=== PATIENT | female | born 1995 | race Caucasian/White ===

== ENCOUNTER 2016-12-11 19:28 | Emergency (ER) | payer OTHER ==
[~2016-12-11] VITALS: Ht 160 cm; Wt 55.5 kg
[~2016-12-11 19:28] MED LIST: BCPILLS PO; CETI10TA84 PO; MISCCAP80 PO; NAPR1TAB9 PO; XPNIN INH
[2016-12-11 19:54] VITALS: Ht 160 cm; Wt 55.5 kg
[2016-12-11] MEDS ORDERED: SODIUM CHLORIDE 0.9% 1000ML 1,000 ML IV STA (20:19)
[2016-12-11] MEDS ORDERED: ONDANSETRON INJ 2 MG/ML 2 ML VIAL IV STA (20:19)
[2016-12-11] MEDS ORDERED: KETOROLAC TROMETHAMINE 30 MG/ML VIAL IV STA (20:19)
[2016-12-11] MEDS ORDERED: ACETAMINOPHEN 500 MG TAB PO STA (20:19)
[2016-12-11] MEDS ORDERED: EPP3/2 IM (20:23)
[2016-12-11] MEDS ORDERED: AZTREONAM IV 1,000 MG in DEXTROSE 5% 100ML 100 ML IV SCH (20:30)
--- NOTE | 2016-12-11 20:33 | EMERGENCY ROOM VISIT NOTE ---
History Report prepared by Deb: Genaro Antonio Under the Supervision of: Dr. Hebert Todd M.D. First contact with patient: 20:16 Chief Complaint: URINARY SYMPTOMS Stated Complaint: BACK PAIN,URINARY INFECTION Nursing Triage Summary: Blood in urine at [id number]. fever, chills. History of Present Illness The patient is a 21 year old female who presents to the Emergency Room with complaints of persistent urinary symptoms beginning yesterday. She notes she often gets ovarian cysts and thought she was getting one the other day. She had body aches yesterday after getting up from the couch, and has bilateral back pain, nausea, and chills. She adds she developed a fever this morning. The patient was seen at [facility] today and was told to follow up at the ER to check for a urinary infection. She notes she has a family history of kidney stones. Source of History: patient Onset: yesterday Position: pelvis Quality: other (urinary symptoms) Timing: other (persistent) Associated Symptoms: + back pain, + chills, + nausea Note: The patient notes having body aches. Review of Systems See HPI for pertinent positives & negatives. A total of 10 systems reviewed and were otherwise negative. Past Medical & Surgical Medical Problems: (1) Allergic reaction (2) Allergic reaction (3) Hypoglycemia in (4) Right lower quadrant abdominal pain (5) Scoliosis (6) Sore throat (7) Sore throat (8) Vasovagal syncope Family History Cancer Diabetes mellitus FH: heart disease Hypertension Kidney disease Kidney stones Social History Smoking Status: Never Smoker Alcohol Use: none Drug Use: none Marital Status: single Housing Status: lives with roommate Occupation Status: [employer] student Current/Historical Medications Scheduled Control Pills ( Control Pills), 1 TAB PO DAILY Scheduled PRN Cetirizine Hcl (Zyrtec), 5 MG PO BID PRN for Allegy Symptoms Epinephrine (Epipen 2-Hcristopher), 0.3 MG IM UD PRN for ALLERGIC REACTION Levalbuterol Tartrate (Levalbuterol Tartrate Hfa), 2 PUFFS INH Q4H PRN for ALLERGIC REACTION Naproxen (Aleve), 220 MG PO Q8 PRN for Pain or Fever Allergies Coded Allergies: Acetaminophen (Unverified Allergy, Severe, FACE AND THROAT NUMB, 02/27/16) Ibuprofen (Unverified Allergy, Severe, FACE AND THROAT NUMB, 02/27/16) Cephalexin (Unverified Allergy, Mild, LIPS & TONGUE TINGLING, THROAT IRRITATED, 02/27/16) Albuterol (Verified Allergy, Unknown, Trouble breathing., 02/27/16) Reported by PT Amoxicillin (Verified Allergy, Unknown, Hives, 02/27/16) Reported by PT. Ciprofloxacin (Verified Allergy, Unknown, Face numbness., 02/27/16) Reported by PT. Levofloxacin (Verified Allergy, Unknown, Face numbness., 02/27/16) Reported by PT NUTS (Verified Allergy, Unknown, ., 02/27/16) Reported by PT, allergy is to Selena Nuts and Almonds. Penicillins (Verified Allergy, Unknown, Hives, 02/27/16) Reported by PT. Sesame Seed (Verified Allergy, Unknown, ., 02/27/16) Sulfa Antibiotics (Verified Allergy, Unknown, Unknown, 02/27/16) PT reports, mother is allergic so she sulfa medications. Uncoded Allergies: FRUIT (Allergy, Unknown, ., 07/26/14) Physical Exam Vital Signs Date Time Temp Pulse Resp B/P Pulse Ox O2 Delivery O2 Flow Rate FiO2 12/11/16 23:00 36.9 98 16 111/78 97 Room Air 12/11/16 21:19 38.4 103 16 107/74 100 Room Air 12/11/16 19:54 38.8 145 16 121/70 97 Room Air Physical Exam CONSTITUTIONAL: Patient is moderately uncomfortable. HEENT: No icterus, moist mucous membranes NECK: No meningismus, trachea is midline. CARDIOVASCULAR: Regular rate, normal perfusion RESPIRATORY: Unlabored breathing. Clear to auscultation. GASTROINTESTINAL: Non-tender GENITOURINARY: No flank tenderness MUSCULOSKELETAL: Full range of motion. Diffuse back pain. NEUROLOGIC: No acute gross focal deficits. PSYCHIATRIC: Normal affect SKIN: Normal for ethnicity. Medical Decision & Procedures ER Provider Diagnostic Interpretation: US results as stated below per my review and radiologist interpretation. RENAL ULTRASOUND FINDINGS: The right kidney measures 11.1 cm in maximal dimension and the left measures 10.8 cm. There is no hydronephrosis. No calculi or masses are identified. There is no fluid collection to suggest a renal abscess. Both ureteral jets were identified. IMPRESSION: Unremarkable renal ultrasound. No hydronephrosis. Electronically signed by: Manny Ennis M.D. 12/11/2016 9:06 PM Dictated Date/Time: 12/11/2016 9:05 PM A[address]OMEN AND PELVIS CT WITHOUT CONTRAST FINDINGS: The lung bases are clear. The unenhanced liver, gallbladder, spleen, pancreas, and adrenal glands are unremarkable. No renal stones or hydronephrosis. No bowel wall thickening or obstruction. The pelvic organs are unremarkable. No suspicious lytic or blastic osseous lesions. There is no perinephric fat stranding. Normal appendix. The bladder is unremarkable. Suboptimal evaluation for bowel pathology due to the lack of intravenous and oral contrast. IMPRESSION: No renal stones or hydronephrosis. No bowel wall thickening or obstruction. Normal appendix. Electronically signed by: Wilman Ornelas M.D. 12/11/2016 10:29 PM Dictated Date/Time: 12/11/2016 10:24 PM Laboratory Results 12/11/16 20:25 Red Blood Count 5.36, Mean Corpuscular Volume 74.1, Mean Corpuscular Hemoglobin 25.2, Mean Corpuscular Hemoglobin Concent 34.0, Mean Platelet Volume 9.8, Neutrophils (%) (Auto) 79.2, Lymphocytes (%) (Auto) 13.2, Monocytes (%) (Auto) 6.8, Eosinophils (%) (Auto) 0.0, Basophils (%) (Auto) 0.6, Neutrophils # (Auto) 4.21, Lymphocytes # (Auto) 0.70, Monocytes # (Auto) 0.36, Eosinophils # (Auto) 0.00, Basophils # (Auto) 0.03 12/11/16 20:25 Test 12/11/16 20:25 White Blood Count 5.31 K/uL (4.8-10.8) Red Blood Count 5.36 M/uL (4.2-5.4) Hemoglobin 13.5 g/dL (12.0-16.0) Hematocrit 39.7 % (37-47) Mean Corpuscular Volume 74.1 fL (80-100) Mean Corpuscular Hemoglobin 25.2 pg (25-34) Mean Corpuscular Hemoglobin Concent 34.0 g/dl (32-36) Platelet Count 256 K/uL (130-400) Mean Platelet Volume 9.8 fL (7.4-10.4) Neutrophils (%) (Auto) 79.2 % Lymphocytes (%) (Auto) 13.2 % Monocytes (%) (Auto) 6.8 % Eosinophils (%) (Auto) 0.0 % Basophils (%) (Auto) 0.6 % Neutrophils # (Auto) 4.21 K/uL (1.4-6.5) Lymphocytes # (Auto) 0.70 K/uL (1.2-3.4) Monocytes # (Auto) 0.36 K/uL (0.11-0.59) Eosinophils # (Auto) 0.00 K/uL (0-0.5) Basophils # (Auto) 0.03 K/uL (0-0.2) RDW Standard Deviation 34.1 fL (36.4-46.3) RDW Coefficient of Variation 12.7 % (11.5-14.5) Immature Granulocyte % (Auto) 0.2 % Immature Granulocyte # (Auto) 0.01 K/uL (0.00-0.02) Microcytosis PRESENT Urine Color YELLOW Urine Appearance CLEAR (CLEAR) Urine pH 7.0 (4.5-7.5) Urine Specific [place] 1.002 (1.000-1.030) Urine Protein NEG (NEG) Urine Glucose (UA) NEG (NEG) Urine Ketones NEG (NEG) Urine Occult Blood 1+ (NEG) Urine Nitrite NEG (NEG) Urine Bilirubin NEG (NEG) Urine Urobilinogen NEG (NEG) Urine Leukocyte Esterase TRACE (NEG) Urine WBC (Auto) /hpf (0-5) Urine RBC (Auto) /hpf (0-4) Urine Hyaline Casts (Auto) /lpf (0-5) Urine Epithelial Cells (Auto) /lpf (0-5) Urine Bacteria (Auto) (NEG) Urine RBC 5-10 /hpf (0-4) Urine WBC 5-10 /hpf (0-5) Urine Epithelial Cells 10-20 /lpf (0-5) Urine Bacteria 2+ (NEG) Anion Gap 11.0 mmol/L (3-11) Est Creatinine Clear Calc Drug Dose 85.6 ml/min Estimated GFR () 111.9 Estimated GFR (Non- 96.6 BUN/Creatinine Ratio 11.0 (10-20) Calcium Level 9.3 mg/dl (8.5-10.1) Human Chorionic Gonadotropin, Qual NEG (NEG) Labs reviewed by ED physician. Medications Administered Medications (Trade) Dose Ordered Sig/Tyrone Route Start Time Stop Time Status Last Admin Dose Admin Sodium Chloride (Nss 1000ml) 1,000 ml @ 0 mls/hr Q0M STAT IV 12/11/16 20:19 12/11/16 20:21 DC 12/11/16 20:19 0 MLS/HR ED Course 2021: Past medical records reviewed. The patient was evaluated in room C8. A complete history and physical examination was performed. 2019: Ordered Toradol Inj 30 mg IV, Zofran Inj 4 mg IV, NSS 1,000 ml @ 0 mls/hr Wide Open IV, and Tylenol Tab 1,000 mg PO. 2029: Ordered Aztreonam 1,000 mg/Dextrose 110 ml @ 100 mls/hr IV. 2244: Upon reexamination the patient is hemodynamically stable. I discussed results and treatment plan with the patient. She verbalizes agreement and understanding. The patient is ready for discharge. Medical Decision Differentials include pyelonephritis, and ovarian cysts. 21-year-old presented from the [facility] for evaluation of possible pyelonephritis. She notes fever earlier today, nausea and generalized unwellness with history of urinary tract infection of the past. Her urine was reportedly dirty at the urgent care. She notes a complex past medical history for multiple food and drug allergies and is reluctant to take any medications here in the emergency room. She took one Aleve more than 8 hours prior to ED arrival. Therefore, it does not appear as if she has any antipyretic effects on board. A comprehensive ED assessment was performed including an ultrasound followed by a CT to ensure her flank pain was not caused by any type of infectious or serious process. Labs were essentially normal with the urine sample showing some epithelial cells. Patient very reluctant to take antibiotics in the context of her allergies and therefore a second urine sample was sent with culture pending. She was advised to continue to take Aleve every 8 hours as needed for any fevers and understands a few minutes up to 5 days. She understands to return for any worsening or worrisome symptoms. She was advised that should the urine culture be positive we will call her discussed the use of antibiotics. She notes a history of pruritus and shortness of breath to antibiotic in the past although she is not clear which one. Many of her allergies are based on allergy testing per a local lead embedded software engineer as well as a specialist she is seen in [facility]. Impression Primary Impression: Fever Additional Impression: Myalgia Scribe Attestation The scribe's documentation has been prepared under my direction and personally reviewed by me in its entirety. I confirm that the note above accurately reflects all work, treatment, procedures, and medical decision making performed by me. Departure Information Dispostion Home / Self-Care Referrals No Doctor, Assigned (PCP) Patient Instructions Fever - [facility], [facility] Problem Qualifiers
[2016-12-11] MEDS ORDERED: LEVA45AE INH (20:36)
[2016-12-11] MEDS ORDERED: ZYR/5 PO (20:36)
[2016-12-11 20:37] LABS: BASO % 0.6 %; BASO ABS # 0.03 K/uL (0-0.2); HEMATOCRIT 39.7 % (37-47); IG% 0.2 %; LYMPH % 13.2 %; MEAN CELL VOLUME 74.1 fL (80-100); MEAN CORPUSCULAR HEMOGLOBIN 25.2 pg (25-34); MEAN PLATELET VOLUME 9.8 fL (7.4-10.4); MONO % 6.8 %; NEUT % 79.2 %; PLATELET COUNT 256 K/uL (130-400); RED BLOOD COUNT 5.36 M/uL (4.2-5.4); WHITE BLOOD COUNT 5.31 K/uL (4.8-10.8)
[2016-12-11 20:48] LABS: URINE APPEARANCE CLEAR (CLEAR); URINE BILIRUBIN NEG (NEG); URINE COLOR YELLOW; URINE NITRITE NEG (NEG); URINE SPECIFIC GRAVITY 1.002 (1.000-1.030); UROBILINOGEN NEG (NEG); ZZUR CULT IF INDIC CLEAN CATCH NO
[2016-12-11 21:03] LABS: CALCIUM 9.3 mg/dl (8.5-10.1); CREATININE 0.86 mg/dl (0.60-1.20); POTASSIUM 3.2 mmol/L (3.5-5.1)
[2016-12-11 21:05] LABS: PREG INTERNAL NEGATIVE QC NEG CLEAR BACKGROUND; PREG INTERNAL POSITIVE QC POS CONTROL LINE
--- NOTE | 2016-12-11 21:08 | DIAGNOSTIC IMAGING REPORT ---
RENAL ULTRASOUND CLINICAL HISTORY: Back pain. Urinary tract infection. COMPARISON STUDY: CT of the abdomen and pelvis March 03, 2016. TECHNIQUE: Sonography of the kidneys and the urinary bladder was performed. FINDINGS: The right kidney measures 11.1 cm in maximal dimension and the left measures 10.8 cm. There is no hydronephrosis. No calculi or masses are identified. There is no fluid collection to suggest a renal abscess. Both ureteral jets were identified. IMPRESSION: Unremarkable renal ultrasound. No hydronephrosis. Electronically signed by: Manny Ennis M.D. 12/11/2016 9:06 PM Dictated Date/Time: 12/11/2016 9:05 PM
[2016-12-11 21:11] LABS: MANUAL MICROSCOPIC REQUIRED? YES; REVIEW REQ? NO
[2016-12-11 21:25] LABS: URINE BACTERIA 2+ (NEG)
[2016-12-11 22:17] LABS: COMPLETE YES; MICROCYTOSIS PRESENT
--- NOTE | 2016-12-11 22:31 | DIAGNOSTIC IMAGING REPORT ---
ABDOMEN AND PELVIS CT WITHOUT CONTRAST CT DOSE: 476.29 mGy.cm HISTORY: Bilateral flank pain. Fever. TECHNIQUE: Multiaxial CT images of the abdomen and pelvis were performed without the use of intravenous and oral contrast according to the standard department stone protocol. COMPARISON STUDY: Abdomen and pelvis CT 03/03/2016. FINDINGS: The lung bases are clear. The unenhanced liver, gallbladder, spleen, pancreas, and adrenal glands are unremarkable. No renal stones or hydronephrosis. No bowel wall thickening or obstruction. The pelvic organs are unremarkable. No suspicious lytic or blastic osseous lesions. There is no perinephric fat stranding. Normal appendix. The bladder is unremarkable. Suboptimal evaluation for bowel pathology due to the lack of intravenous and oral contrast. IMPRESSION: No renal stones or hydronephrosis. No bowel wall thickening or obstruction. Normal appendix. Electronically signed by: Wilman Ornelas M.D. 12/11/2016 10:29 PM Dictated Date/Time: 12/11/2016 10:24 PM
[2016-12-11 23:00] VITALS: BP 111/78; PULSE 98; TEMP 36.9; O2SAT 97
[2016-12-11 23:34] LABS: URINE APPEARANCE CLEAR (CLEAR); URINE BILIRUBIN NEG (NEG); URINE COLOR YELLOW; URINE NITRITE NEG (NEG); URINE SPECIFIC GRAVITY 1.019 (1.000-1.030); UROBILINOGEN NEG (NEG); ZZUR CULT IF INDIC CLEAN CATCH YES
[2016-12-11 23:35] LABS: MANUAL MICROSCOPIC REQUIRED? NO; REVIEW REQ? NO
== END 2016-12-11 23:24 | disposition home or self-care (01) ==
LOC: C.EDB 19:30 → C.EDC 23:24
DX: R50.9 Fever, unspecified (principal); M79.1 Myalgia; Z83.3 Family history of diabetes mellitus; Z84.1 Family history of disorders of kidney and ureter; Z82.49 Family history of ischemic heart disease and other diseases of the circulatory system; Z88.8 Allergy status to other drugs, medicaments and biological substances

== ENCOUNTER 2016-12-12 16:50 | Emergency (ER) | payer OTHER ==
[~2016-12-12] VITALS: Ht 160 cm; Wt 55.7 kg
[~2016-12-12 16:50] MED LIST changes: -CETI10TA84 PO; +EPP3/2 IM; +LEVA45AE INH; -MISCCAP80 PO; -XPNIN INH; +ZYR/5 PO
[2016-12-12 16:56] VITALS: TEMP 36.6; Ht 160 cm; Wt 55.7 kg
[2016-12-12 17:59] LABS: URINE APPEARANCE CLEAR (CLEAR); URINE BILIRUBIN NEG (NEG); URINE COLOR YELLOW; URINE EPITHELIAL CELL AUTO >30 /lpf (0-5); URINE NITRITE NEG (NEG); URINE PH 6.5 (4.5-7.5); URINE SPECIFIC GRAVITY 1.011 (1.000-1.030); UROBILINOGEN NEG (NEG); ZZUR CULT IF INDIC CLEAN CATCH NO
[2016-12-12 18:00] LABS: MANUAL MICROSCOPIC REQUIRED? NO; REVIEW REQ? NO
--- NOTE | 2016-12-12 18:23 | EMERGENCY ROOM VISIT NOTE ---
History Report prepared by Deb: Veronica Omalley Under the Supervision of: Dr. Abel Pineda D.O. First contact with patient: 17:02 Chief Complaint: OTHER COMPLAINT Stated Complaint: RECHECK OF URINE SAMPLE History of Present Illness The patient is a 21 year old female who presents to the Emergency Room with complaints of persistent fever that began yesterday. She currently rates her discomfort as a 6/10 in severity. The patient states that she went to [facility] for her fever yesterday, and additionally noted nausea, lower back pain, diaphoresis, and chills. She states that she was referred to the emergency department for further work up for a possible kidney infection. The patient states that she has been using Aleve to treat her fever. She states that yesterday she began noticing hematuria and burning with urination, but denies any increased frequency. The patient states that she followed with [facility] in the past and states that they called her today to see how she was feeling. She states that she told them that she was still not feeling well and discussed her symptoms. The patient states that she was instructed to come the emergency department for another urine sample. She additionally notes that she is allergic to almost all antibiotics, and states that she does not want any antibiotic unless there is a definite infection. The patient denies any abdominal pain. She states that her last menstrual cycle was a week and a half ago Source of History: patient Onset: yesterday Position: other (global) Symptom Intensity: 6/10 Quality: other (fever) Timing: other (persistent) Modifying Factors (Relieving): other (Aleve) Associated Symptoms: + back pain (lower back), + chills, + diaphoresis, + nausea, + urinary symptoms (hematuria, and burning) Review of Systems See HPI for pertinent positives & negatives. A total of 10 systems reviewed and were otherwise negative. Past Medical & Surgical Medical Problems: (1) Allergic reaction (2) Allergic reaction (3) Hypoglycemia in (4) Right lower quadrant abdominal pain (5) Scoliosis (6) Sore throat (7) Sore throat (8) Vasovagal syncope Family History Cancer Diabetes mellitus FH: heart disease Hypertension Kidney disease Kidney stones Social History Smoking Status: Never Smoker Alcohol Use: none Drug Use: none Marital Status: single Housing Status: lives with roommate Occupation Status: [employer] student Current/Historical Medications Scheduled Control Pills ( Control Pills), 1 TAB PO DAILY Scheduled PRN Cetirizine Hcl (Zyrtec), 5 MG PO BID PRN for Allegy Symptoms Epinephrine (Epipen 2-Christopher), 0.3 MG IM UD PRN for ALLERGIC REACTION Levalbuterol Tartrate (Levalbuterol Tartrate Hfa), 2 PUFFS INH Q4H PRN for ALLERGIC REACTION Naproxen (Aleve), 220 MG PO Q8 PRN for Pain or Fever Allergies Coded Allergies: Acetaminophen (Unverified Allergy, Severe, FACE AND THROAT NUMB, 02/27/16) Ibuprofen (Unverified Allergy, Severe, FACE AND THROAT NUMB, 02/27/16) Cephalexin (Unverified Allergy, Mild, LIPS & TONGUE TINGLING, THROAT IRRITATED, 02/27/16) Albuterol (Verified Allergy, Unknown, Trouble breathing., 02/27/16) Reported by PT Amoxicillin (Verified Allergy, Unknown, Hives, 02/27/16) Reported by PT. Ciprofloxacin (Verified Allergy, Unknown, Face numbness., 02/27/16) Reported by PT. Levofloxacin (Verified Allergy, Unknown, Face numbness., 02/27/16) Reported by PT NUTS (Verified Allergy, Unknown, ., 02/27/16) Reported by PT, allergy is to Selena Nuts and Almonds. Penicillins (Verified Allergy, Unknown, Hives, 02/27/16) Reported by PT. Sesame Seed (Verified Allergy, Unknown, ., 02/27/16) Sulfa Antibiotics (Verified Allergy, Unknown, Unknown, 02/27/16) PT reports, mother is allergic so she sulfa medications. Uncoded Allergies: FRUIT (Allergy, Unknown, ., 07/26/14) Physical Exam Vital Signs Date Time Temp Pulse Resp B/P Pulse Ox O2 Delivery O2 Flow Rate FiO2 12/12/16 16:56 36.6 102 20 127/93 99 Room Air Physical Exam CONSTITUTIONAL/VITAL SIGNS: Reviewed / noted above. GENERAL: Non-toxic in appearance. INTEGUMENTARY: Warm, dry, and [place]. HEAD: Normocephalic. EYES: without scleral icterus or trauma. ENT/OROPHARYNX: clear and moist. LYMPHADENOPATHY/NECK: Is supple without lymphadenopathy or meningismus. RESPIRATORY: Lungs clear and equal. CARDIOVASCULAR: Regular rate and rhythm. GI/ABDOMEN: Soft and nontender. No organomegaly or pulsatile mass. No rebound or guarding. Normal bowel sounds. EXTREMITIES: Warm and well perfused. BACK: Mild CVA tenderness bilaterally. NEUROLOGICAL: Intact without focal deficits. PSYCHIATRIC: normal affect. MUSCULOSKELETAL: Normally developed with good muscle tone. Medical Decision & Procedures Laboratory Results Test 12/12/16 17:20 Urine Color YELLOW Urine Appearance CLEAR (CLEAR) Urine pH 6.5 (4.5-7.5) Urine Specific [place] 1.011 (1.000-1.030) Urine Protein NEG (NEG) Urine Glucose (UA) TRACE (NEG) Urine Ketones 2+ (NEG) Urine Occult Blood 1+ (NEG) Urine Nitrite NEG (NEG) Urine Bilirubin NEG (NEG) Urine Urobilinogen NEG (NEG) Urine Leukocyte Esterase SMALL (NEG) Urine WBC (Auto) 5-10 /hpf (0-5) Urine RBC (Auto) 5-10 /hpf (0-4) Urine Hyaline Casts (Auto) 1-5 /lpf (0-5) Urine Epithelial Cells (Auto) >30 /lpf (0-5) Urine Bacteria (Auto) NEG (NEG) Laboratory results as stated above per my review. ED Course 1701: Previous medical records were reviewed. The patient was evaluated in room B4B. A complete history and physical examination was performed. 1823: I reevaluated the patient and she is resting comfortably. I discussed the exam findings and I discussed the treatment plan. She verbalized complete understanding and agreement. She is ready to go home. Medical Decision Differential considered: pancreatitis, hepatitis, or acute cholecystitis, AAA, UTI, pyelonephritis, kidney stones, appendicitis, diverticulitis, shingles, bowel obstruction mesenteric ischemia, intussusception,hernia, ovarian torsion, ruptured ovarian cyst,ectopic , . This is a 21-year-old female who presents to the ED with a chief complaint of requesting a urinalysis. The patient has been having some low back discomfort. She was seen here yesterday and has had a urine and urine culture. The patient declines antibiotics unless a proven urine infection as she has multiple allergies. She has had a little nausea off and on. She reported going to [place] and the patient was then sent here for a urinalysis. She states that she noticed a little hematuria yesterday. She denies any specific urgency, frequency or pain with urination. The patient's exam was suggestive of some mild CVA tenderness otherwise was normal. Urinalysis did not show bacteria or obvious infection. A urine culture from yesterday is still pending. The patient was told the results. She is felt to be stable for discharge awaiting culture results. Impression Primary Impression: Urinary symptom or sign Scribe Attestation The scribe's documentation has been prepared under my direction and personally reviewed by me in its entirety. I confirm that the note above accurately reflects all work, treatment, procedures, and medical decision making performed by me. Departure Information Dispostion Home / Self-Care Referrals No Doctor, Assigned (PCP) Forms HOME CARE DOCUMENTATION FORM, IMPORTANT VISIT INFORMATION, WORK / SCHOOL INSTRUCTIONS Patient Instructions My [facility] Additional Instructions Culture should be back tomorrow afternoon. Call [phone] for results.
[2016-12-12 18:46] VITALS: BP 111/67; PULSE 82; O2SAT 97
== END 2016-12-12 18:35 | disposition home or self-care (01) ==
LOC: C.EDB 16:52
DX: M54.5 Low back pain (principal); R31.9 Hematuria, unspecified; R50.9 Fever, unspecified; R11.0 Nausea; Z79.3 Long term (current) use of hormonal contraceptives

== ENCOUNTER → 2016-12-14 | Outpatient (CLI) | payer OTHER ==
[2016-12-14 17:03] LABS: URINE APPEARANCE CLEAR (CLEAR); URINE BILIRUBIN NEG (NEG); URINE COLOR YELLOW; URINE EPITHELIAL CELL AUTO >30 /lpf (0-5); URINE NITRITE NEG (NEG); URINE SPECIFIC GRAVITY 1.001 (1.000-1.030); UROBILINOGEN NEG (NEG)
[2016-12-14 17:16] LABS: MANUAL MICROSCOPIC REQUIRED? NO; REVIEW REQ? NO
== END | disposition home or self-care (01) ==
LOC: C.LABSPEC 16:54
PROVIDERS: ATTEND Internal Medicine
DX: R39.9 Unspecified symptoms and signs involving the genitourinary system (principal)

== ENCOUNTER → 2016-12-15 | Outpatient (CLI) | payer OTHER ==
--- NOTE | 2016-12-15 16:52 | DIAGNOSTIC IMAGING REPORT ---
L-SPINE MIN 4 VIEWS ROUTINE CLINICAL HISTORY: M54.5 Low back pain COMPARISON STUDY: No previous studies for comparison. FINDINGS: There is a mild lumbar levoscoliosis. No fractures or subluxations are visualized. Disc space heights appear well-preserved. There is straightening of normal lumbar lordosis. IMPRESSION: No fractures or subluxations identified. Straightening of the normal lumbar lordosis Electronically signed by: Rudy Newton M.D. 12/15/2016 4:51 PM Dictated Date/Time: 12/15/2016 4:50 PM
== END | disposition home or self-care (01) ==
LOC: C.RAD1850 16:30
PROVIDERS: ATTEND Internal Medicine
DX: M54.5 Low back pain (principal)